=== PATIENT | female | born 2000 | race Two or more races ===

== ENCOUNTER 2020-05-05 11:12 | Emergency (ER) | payer OTHER ==
[~2020-05-05] VITALS: Ht 160 cm; Wt 78.0 kg
[2020-05-05] MEDS ORDERED: PRENATABS FA T1 EACH PO (11:26)
== END 2020-05-05 16:15 | disposition home or self-care (01) ==
LOC: ER 11:12
DX: O26.851 Spotting complicating pregnancy, first trimester (principal); Z34.01 Encounter for supervision of normal first pregnancy, first trimester

== ENCOUNTER 2020-06-14 21:10 | Outpatient (CLI) | payer OTHER ==
[~2020-06-14 21:10] MED LIST: PRENATABS FA T1 EACH PO
== END 2020-06-15 19:23 | disposition home or self-care (01) ==
LOC: OBS/DEL 21:10
PROVIDERS: ATTEND Specialist
DX: O26.842 Uterine size-date discrepancy, second trimester (principal); O26.892 Other specified pregnancy related conditions, second trimester; R10.2 Pelvic and perineal pain; O60.02 Preterm labor without delivery, second trimester; O98.812 Other maternal infectious and parasitic diseases complicating pregnancy, second trimester; B37.89 Other sites of candidiasis; Z3A.20 20 weeks gestation of pregnancy

== ENCOUNTER 2020-08-07 00:59 | Outpatient (CLI) | payer OTHER | END 2020-08-07 13:29 | disposition home or self-care (01) | LOC: OBS/DEL 00:59 | PROVIDERS: ATTEND Specialist | DX: O26.893 Other specified pregnancy related conditions, third trimester (principal); Z04.1 Encounter for examination and observation following transport accident; O60.03 Preterm labor without delivery, third trimester; Z3A.28 28 weeks gestation of pregnancy; V49.88XA Car occupant (driver) (passenger) injured in other specified transport accidents, initial encounter; Y93.89 Activity, other specified; Y92.488 Other paved roadways as the place of occurrence of the external cause; Y99.8 Other external cause status ==

== ENCOUNTER 2020-09-23 00:38 | Outpatient (CLI) | payer OTHER ==
[2020-09-23] MEDS ORDERED: DUI500 PO (17:39)
== END 2020-09-23 19:20 | disposition home or self-care (01) ==
LOC: OBS/DEL 00:38
PROVIDERS: ATTEND Specialist
DX: O23.43 Unspecified infection of urinary tract in pregnancy, third trimester (principal); Z3A.34 34 weeks gestation of pregnancy

== ENCOUNTER 2020-10-17 18:15 | Outpatient (CLI) | payer OTHER ==
[~2020-10-17 18:15] MED LIST changes: +DUI500 PO
== END 2020-10-18 17:57 | disposition home or self-care (01) ==
LOC: OBS/DEL 18:15
PROVIDERS: ATTEND Specialist
DX: O23.43 Unspecified infection of urinary tract in pregnancy, third trimester (principal); Z3A.38 38 weeks gestation of pregnancy

== ENCOUNTER 2023-06-14 10:31 | Emergency (ER) | payer OTHER ==
[~2023-06-14] VITALS: Ht 160 cm; Wt 72.6 kg
[2023-06-14 13:28] LABS: URINE APPEARANCE Clear; URINE BILIRRUBIN Negative (NEGATIVE); URINE BLOOD Negative; URINE COLOR Yellow; URINE GLUCOSE Negative (NEGATIVE); URINE LEUKOCYTE Negative; URINE NITRATE Negative; URINE PROTEIN Negative (NEGATIVE); URINE UROBILINOGEN 0.2 E.U./dl
[2023-06-14 13:32] LABS: URINE BACTERIA 423.2 uL (0.0-1933); URINE EPITHELIAL CELLS 4.4 uL (0.0-38.8)
[2023-06-14 13:38] LABS: HEMATOCRIT 37.1 % (36.0-45.00); HEMOGLOBIN 12.8 g/dL (12.0-15.00); MEAN CELL VOLUME 91.4 fL (80.00-100.00); MEAN CORPUSCULAR HEMOGLOBIN 31.6 pg (27.00-32.0); MEAN CORPUSCULAR HGB CONC 34.5 g/dl (32.0-36.0); PLATELET COUNT 193 K/uL (150-450); RED BLOOD COUNT 4.06 M/uL (4.00-6.00); RED CELL DISTRIBUTION WIDTH 12.4 % (11.5-14.5); URINE WBC 1.6 uL (0.0-23.2)
[2023-06-14 14:07] LABS: ALBUMIN 3.5 gm/dL (3.4-5.0); BILIRUBIN TOTAL 0.49 mg/dL (0.3-1.2); CALCIUM 8.9 mg/dL (8.5-10.1); CREATININE SERUM 0.62 mg/dL (0.55-1.02); GFR 119.28; POTASSIUM 3.78 mEq/L (3.5-5.1); TOTAL PROTEIN 7.5 gm/dL (6.4-8.2)
== END 2023-06-14 16:25 | disposition home or self-care (01) ==
LOC: ER 10:31
PROVIDERS: General Practice
DX: O23.31 Infections of other parts of urinary tract in pregnancy, first trimester (principal); N39.0 Urinary tract infection, site not specified; Z3A.01 Less than 8 weeks gestation of pregnancy

== ENCOUNTER 2023-06-17 14:00 | Emergency (ER) | payer OTHER ==
[~2023-06-17] VITALS: Ht 160 cm; Wt 72.6 kg
[2023-06-17 15:19] LABS: HEMATOCRIT 37.4 % (36.0-45.00); HEMOGLOBIN 12.8 g/dL (12.0-15.00); MEAN CELL VOLUME 90.6 fL (80.00-100.00); MEAN CORPUSCULAR HEMOGLOBIN 31.1 pg (27.00-32.0); MEAN CORPUSCULAR HGB CONC 34.3 g/dl (32.0-36.0); PLATELET COUNT 215 K/uL (150-450); RED BLOOD COUNT 4.13 M/uL (4.00-6.00); RED CELL DISTRIBUTION WIDTH 12.7 % (11.5-14.5)
== END 2023-06-17 17:47 | disposition home or self-care (01) ==
LOC: ER 14:00
PROVIDERS: Emergency Medicine
DX: O20.8 Other hemorrhage in early pregnancy (principal); Z3A.01 Less than 8 weeks gestation of pregnancy

== ENCOUNTER → 2024-03-20 | Emergency (ER) | payer OTHER ==
[~2024-03-20] VITALS: Ht 160 cm; Wt 88.9 kg
[~2024-03-20] MED LIST changes: +LEVOTHYROXINE25 MCG PO
[2024-03-20 20:31] VITALS: BP 102/70; O2SAT 99
== END | disposition left against medical advice (07) ==
LOC: ER 19:20
DX: Z53.21 Procedure and treatment not carried out due to patient leaving prior to being seen by health care provider (principal)

== ENCOUNTER 2024-05-30 21:35 | Outpatient (CLI) | payer OTHER ==
[~2024-05-30] VITALS: Ht 160 cm; Wt 88.9 kg
[2024-05-30 21:30] VITALS: BP 97/63
[2024-05-30 21:53] VITALS: BP 97/63
[2024-05-30] MEDS ORDERED: RINGERS SOLUTION,LACTATED 1,000 ML IV SCH (22:00)
[2024-05-30 23:03] VITALS: BP 94/55
[2024-05-30 23:25] LABS: HEMATOCRIT 33.1 % (36.0-45.00); HEMOGLOBIN 11.2 g/dL (12.0-15.00); MEAN CELL VOLUME 86.5 fL (80.00-100.00); MEAN CORPUSCULAR HEMOGLOBIN 29.3 pg (27.00-32.0); MEAN CORPUSCULAR HGB CONC 33.8 g/dl (32.0-36.0); PH,URINE 6.5 (5.0-8.0); PLATELET COUNT 200 K/uL (150-450); RED BLOOD COUNT 3.82 M/uL (4.00-6.00); RED CELL DISTRIBUTION WIDTH 13.8 % (11.5-14.5); URINE APPEARANCE Clear; URINE BILIRRUBIN Negative (NEGATIVE); URINE BLOOD Negative; URINE COLOR Yellow; URINE GLUCOSE Negative (NEGATIVE); URINE KETONE Negative (NEGATIVE); URINE LEUKOCYTE Trace; URINE NITRATE Negative; URINE PROTEIN Negative (NEGATIVE); URINE UROBILINOGEN 0.2 E.U./dl
[2024-05-30 23:26] LABS: URINE BACTERIA 959.4 uL (0.0-1933); URINE EPITHELIAL CELLS 17.8 uL (0.0-38.8); URINE RBC 3.3 uL (0.0-20.8)
[2024-05-31 03:10] VITALS: BP 93/52
[2024-05-31 07:16] VITALS: BP 95/57
[2024-05-31 09:59] VITALS: BP 95/57
== END 2024-05-31 09:36 | disposition home or self-care (01) ==
LOC: OBS/DEL 21:35
PROVIDERS: Obstetrics & Gynecology; ATTEND Specialist
DX: O26.893 Other specified pregnancy related conditions, third trimester (principal); Z3A.30 30 weeks gestation of pregnancy

== ENCOUNTER 2024-07-25 20:00 | Inpatient (IN) | payer OTHER ==
[~2024-07-25] VITALS: Ht 160 cm; Wt 93.4 kg
[2024-07-25 20:12] VITALS: BP 120/64
[2024-07-25] MEDS ORDERED: ACETAMINOPHEN 500 MG GEL..CAP PO PRN (20:15)
[2024-07-25] MEDS ORDERED: RINGERS SOLUTION,LACTATED 1,000 ML IV SCH (20:15)
[2024-07-25 20:21] VITALS: BP 120/64
[2024-07-25 20:54] LABS: URINE APPEARANCE Turbid; URINE BILIRRUBIN Negative (NEGATIVE); URINE BLOOD Negative; URINE COLOR Yellow; URINE GLUCOSE Negative (NEGATIVE); URINE KETONE Negative (NEGATIVE); URINE LEUKOCYTE Negative; URINE NITRATE Negative; URINE PROTEIN Negative (NEGATIVE)
[2024-07-25 20:57] LABS: URINE BACTERIA 143.2 uL (0.0-1933); URINE EPITHELIAL CELLS 5.2 uL (0.0-38.8); URINE WBC 4.9 uL (0.0-23.2)
[2024-07-25 21:03] LABS: HEMATOCRIT 34.2 % (36.0-45.00); HEMOGLOBIN 11.7 g/dL (12.0-15.00); MEAN CELL VOLUME 84.7 fL (80.00-100.00); MEAN CORPUSCULAR HEMOGLOBIN 28.9 pg (27.00-32.0); MEAN CORPUSCULAR HGB CONC 34.1 g/dl (32.0-36.0); PLATELET COUNT 157 K/uL (150-450); RED BLOOD COUNT 4.04 M/uL (4.00-6.00); RED CELL DISTRIBUTION WIDTH 15.3 % (11.5-14.5)
[2024-07-25 21:06] LABS: URINE RBC 1.3 uL (0.0-20.8)
[2024-07-25 21:52] VITALS: BP 120/64
[2024-07-25 21:59] LABS: INR 0.97; PARTIAL THROMBOPLASTIN TIME 26.7 SECONDS (22.0-34.0); PROTHROMBIN TIME 10.6 SECONDS (9.0-11.5)
[2024-07-25 22:04] LABS: ALBUMIN 2.6 gm/dL (3.4-5.0); BILIRUBIN TOTAL 0.4 mg/dL (0.3-1.2); CREATININE SERUM 0.58 mg/dL (0.55-1.02); GFR 127.72; GLOBULINA 3.4 G/DL (2.4-3.5); POTASSIUM 3.99 mEq/L (3.5-5.1)
[2024-07-25 23:11] VITALS: BP 112/69
[2024-07-25] MEDS ORDERED: MORPHINE SULFATE 4 MG/ML VIAL IV ONE (23:45)
[2024-07-26] VITALS (8 sets, daily range): BP systolic 106–134; BP diastolic 59–81
[2024-07-26] MEDS ORDERED: CHLORHEXIDINE GLUCONATE 120 ML BOTTLE TOP ONE ×2 (02:48→04:00)
[2024-07-26] MEDS ORDERED: OXYTOCIN 20 UNITS/1000ML RL PIGGYBAG IV ONE (02:48)
[2024-07-26] MEDS ORDERED: LIDOCAINE HCL 1% 10ML VIAL ONE (02:48)
[2024-07-26] MEDS ORDERED: ERYTHROMYCIN BASE OPHT 1GM EACH TUBE OP ONE ×2 (02:48→04:00)
[2024-07-26] MEDS ORDERED: OXYTOCIN 20 UNITS/500ML RL PIGGYBAG IV ONE (02:53)
[2024-07-26] MEDS ORDERED: IBUprofen 600 MG TABLET PO SCH ×2 (04:00→12:00)
[2024-07-26] MEDS ORDERED: OXYTOCIN 500 ML IV SCH (04:00)
[2024-07-26] MEDS ORDERED: OXYTOCIN 1,000 ML IV SCH (04:00)
[2024-07-27] VITALS: BP 112/61
[2024-07-27 08:52] VITALS: BP 106/70
[2024-07-27 11:08] LABS: HEMATOCRIT 35.6 % (36.0-45.00); HEMOGLOBIN 11.8 g/dL (12.0-15.00); MEAN CELL VOLUME 87.6 fL (80.00-100.00); MEAN CORPUSCULAR HEMOGLOBIN 29.1 pg (27.00-32.0); MEAN CORPUSCULAR HGB CONC 33.3 g/dl (32.0-36.0); PLATELET COUNT 153 K/uL (150-450); RED BLOOD COUNT 4.06 M/uL (4.00-6.00); RED CELL DISTRIBUTION WIDTH 15.2 % (11.5-14.5)
[2024-07-27] MEDS ORDERED: MORPHINE SULFATE 4 MG/ML VIAL IV SCH (17:45)
[2024-07-27] MEDS ORDERED: KETOROLAC TROMETHAMINE 60 MG VIAL IM NR (18:00)
[2024-07-27] MEDS ORDERED: MORPHINE SULFATE 4 MG/ML VIAL IV ONE (18:35)
[2024-07-27] MEDS ORDERED: KETOROLAC TROMETHAMINE 60 MG VIAL IM ONE (19:54)
[2024-07-27 23:50] VITALS: BP 104/71
[2024-07-28] MEDS ORDERED: SURFAK240 M1 PO (04:10)
[2024-07-28] MEDS ORDERED: IBU800 MG PO (04:10)
[2024-07-28] MEDS ORDERED: IBUprofen 800 MG TABLET PO SCH (09:00)
[2024-07-28 12:25] VITALS: BP 112/75
[2024-07-28 16:00] VITALS: BP 127/85
== END 2024-07-28 19:25 | disposition home or self-care (01) | DRG 798 ==
LOC: OBS/DEL 20:00 → OB/GYN 21:43 → LDR 21:43 → OB/GYN 07-26 03:45
PROVIDERS: Obstetrics & Gynecology; ADMIT Specialist; ATTEND Specialist
PROC: 10E0XZZ Delivery of Products of Conception, External Approach (ICD-10-PCS; principal; 2024-07-25)
PROC: 0UQMXZZ Repair Vulva, External Approach (ICD-10-PCS; 2024-07-25)
PROC: 4A1HXCZ Monitoring of Products of Conception, Cardiac Rate, External Approach (ICD-10-PCS; 2024-07-25)
PROC: 0UB70ZZ Excision of Bilateral Fallopian Tubes, Open Approach (ICD-10-PCS; 2024-07-27)
DX: O70.0 First degree perineal laceration during delivery (principal); Z37.0 Single live birth; Z3A.38 38 weeks gestation of pregnancy; Z30.2 Encounter for sterilization

== ENCOUNTER 2024-07-30 20:32 | Emergency (ER) | payer OTHER ==
[~2024-07-30] VITALS: Ht 160 cm; Wt 93.4 kg
[~2024-07-30 20:32] MED LIST changes: +IBU800 MG PO; +SURFAK240 M1 PO
[2024-07-30] MEDS ORDERED: 0.9 % SODIUM CHLORIDE 500 ML IV ONE (21:15)
[2024-07-30] MEDS ORDERED: ONDANSETRON HCL 2 MG/ML VIAL IV ONE (21:15)
[2024-07-30] MEDS ORDERED: ACETAMINOPHEN 500 MG GEL..CAP PO ONE ×2 (21:15→21:31)
[2024-07-30] MEDS ORDERED: ONDANSETRON HCL 2 MG/ML VIAL ONE (21:31)
[2024-07-30 21:55] LABS: HEMATOCRIT 34.3 % (36.0-45.00); HEMOGLOBIN 11.5 g/dL (12.0-15.00); MEAN CELL VOLUME 85.5 fL (80.00-100.00); MEAN CORPUSCULAR HEMOGLOBIN 28.8 pg (27.00-32.0); MEAN CORPUSCULAR HGB CONC 33.6 g/dl (32.0-36.0); PLATELET COUNT 203 K/uL (150-450); RED BLOOD COUNT 4.01 M/uL (4.00-6.00)
[2024-07-30 22:19] LABS: CALCIUM 8.7 mg/dL (8.5-10.1); CREATININE SERUM 0.64 mg/dL (0.55-1.02); POTASSIUM 4.16 mEq/L (3.5-5.1)
[2024-07-30 23:16] LABS: PH,URINE 6.5 (5.0-8.0); URINE APPEARANCE Cloudy; URINE BILIRRUBIN Negative (NEGATIVE); URINE BLOOD Large; URINE COLOR Yellow; URINE GLUCOSE Negative (NEGATIVE); URINE KETONE Trace (NEGATIVE); URINE LEUKOCYTE Moderate; URINE NITRATE Negative
[2024-07-30 23:20] LABS: URINE EPITHELIAL CELLS 143.7 uL (0.0-38.8); URINE RBC 20.4 uL (0.0-20.8)
[2024-07-31] LABS: URINE BACTERIA > 9821.5 uL (0.0-1933); URINE CAST 0.44 uL (0.0-1.40); URINE PROTEIN 100 (NEGATIVE)
[2024-07-31 00:01] LABS: URINE MUCUS MODERATE
[2024-07-31] MEDS ORDERED: KETOROLAC TROMETHAMINE 30 MG VIAL IV STA (00:30)
[2024-07-31] MEDS ORDERED: KETOROLAC TROMETHAMINE 30 MG VIAL ONE (00:32)
== END 2024-07-31 00:57 | disposition home or self-care (01) ==
LOC: ER 21:28
PROVIDERS: General Practice
DX: G44.209 Tension-type headache, unspecified, not intractable (principal)